=== PATIENT | male | born 1945 | race Two or more races ===

== ENCOUNTER 2020-08-26 16:24 | Inpatient (IN) | payer MEDICAID ==
[~2020-08-26] VITALS: Ht 165.1 cm; Wt 65.3 kg
--- NOTE | 2020-08-26 21:26 | NUR ---
Admitted a 75 yr old Male who was transferred from [facility] ER for continuity of care with the dx of sepsis d/t UTI.Per report patient had AMS became agitated and combative in the Er and was given Lorazepam ,IV ATV Rocephin for uti and Tylenol for fever.Upon assessment Patient is calm , confused and able to follow simple commands.IV on LT AC 20 patent and intact.Noted with skin discoloration on LT upper arm,LT dahl and sacral area. No skin breakdown. made aware of pt's admission.With new order noted and carried out.Safety measures in place .Bed in locked and lowest position.Will continue to monitor.
[2020-08-26] MEDS ORDERED: IV 1/2NS 1000 ML 1,000 ML IV PRN (21:45)
[2020-08-26] MEDS ORDERED: ONDANSETRON 4 MG/2 ML VIAL IV PRN (21:45)
[2020-08-26] MEDS ORDERED: MORPHINE SULFATE 2 MG/1 ML DISP.SYRIN IV PRN (21:45)
[2020-08-26] MEDS ORDERED: ENOXAPARIN SODIUM 40 MG/0.4 ML DISP.SYRIN SQ SCH (21:45)
[2020-08-26] MEDS ORDERED: CEFTRIAXONE 1 G VIAL ONE (22:23)
[2020-08-27 00:01] VITALS: BP 131/63
[2020-08-27 04:13] LABS: *BILIRUBIN,URIN NEGATIVE (NEGATIVE); *BLOOD, URINE 2+ (NEGATIVE); *CLARITY,URINE CLOUDY (CLEAR); *COLOR,URINE YELLOW (YELLOW); *KETONES,URINE NEGATIVE (NEGATIVE); *UROBILINOGEN,URINE 0.2 E.U./dl (NORMAL); LEUKOCYTE ESTERASE ,URINE TRACE (NEGATIVE); NITRITE, URINE NEGATIVE (NEGATIVE); UGLUCOSE NEGATIVE (NEGATIVE)
[2020-08-27 05:17] VITALS: BP 126/57
[2020-08-27] MEDS: PANTOPRAZOLE SODIUM 40 MG TABLET.DR PO SCH (06:01)
[2020-08-27 06:20] LABS: BASOPHILS # (AUTO) 0.1 K/uL (0.0-8.0); BASOPHILS % (AUTO) 0.8 % (0.0-2.0); EOSINOPHILS # (AUTO) 0.1 K/uL (0.0-0.7); EOSINOPHILS % (AUTO) 0.7 % (0.0-7.0); HEMATOCRIT 33.8 % (36.7-47.1); HEMOGLOBIN 11.3 g/dL (12.5-16.3); LYMPHOCYTES # (AUTO) 1.4 K/uL (20.0-40.0); LYMPHOCYTES % (AUTO) 16.6 % (20.5-51.5); MEAN CORPUSCULAR HEMOGLOBIN 33.5 uug (23.8-33.4); MEAN CORPUSCULAR HGB CONC 34 g/dL (32.5-36.3); MEAN CORPUSCULAR VOLUME 100.1 fL (73.0-96.2); MONOCYTES # (AUTO) 0.6 K/uL (2.0-10.0); MONOCYTES % (AUTO) 7.8 % (0.0-11.0); NEUTROPHILS # (AUTO) 6.1 K/uL (1.8-8.9); NEUTROPHILS % (AUTO) 74.1 % (38.5-71.5); PLATELET COUNT (AUTO) 206 K/uL (152-348); RED BLOOD CELL COUNT(AUTO) 3.37 MIL/uL (4.06-5.63); WHITE BLOOD COUNT (AUTO) 8.3 K/uL (3.6-10.2)
[2020-08-27 06:30] LABS: IRON, SERUM 88 ug/dL (50-175)
--- NOTE | 2020-08-27 06:35 | NUR ---
Patient awake ALOx1 .Kyrgyz speaking.Denies pain.No acute distress noted.Slept well through out the night.No episodes of combative or agitation .Continue safety measures.Will endorse to oncoming shift.
[2020-08-27 06:36] LABS: ALANINE AMINOTRANSFERASE 15 U/L (16-63); ALKALINE PHOSPHATASE 76 U/L (50-136); ASPARTATE AMINOTRANSFERASE 39 U/L (15-37); BILIRUBIN,TOTAL 0.5 mg/dL (0.2-1.0); CARBON DIOXIDE 22 mmol/L (21-32); CHLORIDE 107 mmol/L (98-107); CHOLESTEROL 144 mg/dL (<200); CREATININE 2.6 mg/dL (0.6-1.3); GLUCOSE 53 mg/dL (74-106); HDL CHOLESTEROL 49 mg/dL (40-60); POTASSIUM 3.9 mmol/L (3.5-5.1); TOTAL PROTEIN, SERUM 5.5 g/dL (6.4-8.2); TRIGLYCERIDES 79 MG/DL (30-150); UREA NITROGEN, BLOOD 28 mg/dL (7-18)
[2020-08-27 06:39] LABS: THYROID STIMULATING HORMONE 0.918 mIU/mL (0.358-3.740)
[2020-08-27] MEDS: METOPROLOL TARTRATE 25 MG TABLET PO SCH ×2 (09:10→19:55)
[2020-08-27] MEDS: LORAZEPAM 2 MG/1 ML VIAL IV PRN ×2 (10:28→16:46)
[2020-08-27] MEDS: ZIPRASIDONE MESYLATE 20 MG VIAL IM PRN ×2 (10:40→20:04)
[2020-08-27 12:05] VITALS: BP 157/63
--- NOTE | 2020-08-27 13:01 | NUR ---
WOUND CARE CONSULT: PER RN, PT AGRESSIVE AND AGITATED. RECOMMENDATIONS MADE BASED ON PHOTOS. DISCUSSED WITH NURSING STAFF. MD IN AGREEMENT WITH PLAN OF CARE.
[2020-08-27 13:19] LABS: BACTERIA,URINE FEW /HPF (NONE SEEN); SQUAMOUS EPITHELIAL CELL,UR FEW /HPF (NONE SEEN)
[2020-08-27 15:42] VITALS: BP 145/62
[2020-08-27] MEDS: QUETIAPINE FUMARATE 25 MG TABLET PO SCH (17:00)
--- NOTE | 2020-08-27 17:08 | NUR ---
AAOx1. Delusional and combative/aggressive at times. Geodon PRN x1 and ativan PRN x1 administered w/ good relief. Pt appear comfortable and asleep in bed at this time. VSS. SR on monitor. Continent x2. Ambulatory w/ 1 person assist. RA, no SOB. SKin care provided. Plan: AM labs, psych consult, IVF
[2020-08-27] MEDS ORDERED: THIAMINE HCL 200 MG/2 ML VIAL IV ONE (17:30)
[2020-08-27] MEDS: IV NS 1000 ML 1,000 ML IV PRN (18:06)
[2020-08-27] MEDS: ENOXAPARIN SODIUM 30 MG/0.3 ML DISP.SYRIN SQ SCH (19:59)
[2020-08-27] MEDS: DOCUSATE SODIUM 100 MG CAPSULE PO SCH ×2 (20:01→20:24)
[2020-08-27 20:26] VITALS: BP 168/90
[2020-08-27] MEDS: CEFTRIAXONE 1 G in IV DEXTROSE 5% 50 ML IV SCH (22:34)
[2020-08-28] MEDS: LORAZEPAM 2 MG/1 ML VIAL IV PRN ×2 (00:08→08:47)
--- NOTE | 2020-08-28 00:18 | NUR ---
Patient agitated and combative. Trying to get up out of bed. Danger to self and staff. PRN Ativan administered. Will monitor and assess.
[2020-08-28] MEDS: ZIPRASIDONE MESYLATE 20 MG VIAL IM PRN (04:21)
--- NOTE | 2020-08-28 04:21 | NUR ---
Patient agitated, trying to get out of bed, attempting to pull out IV. Calming measures attempted to no avail. PRN Geodon given. Will monitor and assess.
--- NOTE | 2020-08-28 06:57 | NUR ---
Patient handed off to AM nurse. Stable condition. All vitals WNLs. Safety measures in place. Will endorse to AM nurse.
[2020-08-28] MEDS: PANTOPRAZOLE SODIUM 40 MG TABLET.DR PO SCH (07:00)
[2020-08-28 07:31] LABS: BASOPHILS # (AUTO) 0.1 K/uL (0.0-8.0); BASOPHILS % (AUTO) 0.8 % (0.0-2.0); EOSINOPHILS # (AUTO) 0.1 K/uL (0.0-0.7); EOSINOPHILS % (AUTO) 1.4 % (0.0-7.0); HEMATOCRIT 38.5 % (36.7-47.1); HEMOGLOBIN 12.7 g/dL (12.5-16.3); LYMPHOCYTES # (AUTO) 1.7 K/uL (20.0-40.0); MEAN CORPUSCULAR HEMOGLOBIN 33.5 uug (23.8-33.4); MEAN CORPUSCULAR HGB CONC 33 g/dL (32.5-36.3); MEAN CORPUSCULAR VOLUME 101.5 fL (73.0-96.2); MONOCYTES # (AUTO) 0.6 K/uL (2.0-10.0); MONOCYTES % (AUTO) 7.8 % (0.0-11.0); NEUTROPHILS # (AUTO) 4.9 K/uL (1.8-8.9); PLATELET COUNT (AUTO) 197 K/uL (152-348); WHITE BLOOD COUNT (AUTO) 7.3 K/uL (3.6-10.2)
[2020-08-28 08:05] LABS: ALANINE AMINOTRANSFERASE 17 U/L (16-63); ALKALINE PHOSPHATASE 81 U/L (50-136); ASPARTATE AMINOTRANSFERASE 39 U/L (15-37); BILIRUBIN,TOTAL 0.4 mg/dL (0.2-1.0); CARBON DIOXIDE 20 mmol/L (21-32); CHLORIDE 107 mmol/L (98-107); CREATININE 2.6 mg/dL (0.6-1.3); GLUCOSE 57 mg/dL (74-106); MAGNESIUM 2.3 mg/dL (1.8-2.4); PHOSPHOROUS 3.1 mg/dL (2.5-4.9); POTASSIUM 3.9 mmol/L (3.5-5.1); TOTAL PROTEIN, SERUM 6.4 g/dL (6.4-8.2); UREA NITROGEN, BLOOD 26 mg/dL (7-18)
[2020-08-28] MEDS: QUETIAPINE FUMARATE 25 MG TABLET PO SCH ×2 (08:09→16:13)
[2020-08-28] MEDS: METOPROLOL TARTRATE 25 MG TABLET PO SCH ×2 (08:20→21:00)
--- NOTE | 2020-08-28 09:03 | NUR ---
PATIENT AWAKE BUT CONFUSED, COMBATIVE, TRIES TO AMBULATE BUT UNSTEADY AT THIS TIME, REFUSED ASSISTANCE, GIVEN ATIVAN 0.5MG IV FOR AGITATION ANXIETY, CONT TO MONITOR.
--- NOTE | 2020-08-28 10:43 | NUR ---
PATIENT AWAKE CONFUSED, STILL AGITATED, PULLING OUT TELE BOX, STOP IV AT THIS TIME, PULLING OUT IV POLL, CONT TO MONITOR, GAVE BREAKFAST AND FLUIDS, KEPT CLEAN AND DRY, CONT TO MONITOR. PATIENT DRINK ADEQUATE JUICE AND WATER, AND ATE BREAKFAST CONT TO MONITOR.
--- NOTE | 2020-08-28 11:19 | NUR ---
The patient is confused and combative, RN Will will call the tech when he is ready to be scanned.
--- NOTE | 2020-08-28 15:07 | NUR ---
PATIENT BP ELEVATED NOTIFY EDEL WRIGHT NP.
[2020-08-28] MEDS: ACETAMINOPHEN 325 MG TABLET PO PRN (15:11)
[2020-08-28] MEDS: CLONIDINE HCL 0.1 MG TABLET PO PRN (15:13)
[2020-08-28] MEDS: HALOPERIDOL LACTATE 5 MG/1 ML VIAL IM PRN (15:30)
--- NOTE | 2020-08-28 15:35 | NUR ---
PATIENT AGITATED, HOSTILE AND COMBATIVE, GIVEN HALDOL IM ORDERED, CONT TO MONITOR.
[2020-08-28] MEDS: CHLORDIAZEPOXIDE HCL 25 MG CAPSULE PO SCH ×2 (17:46→18:05)
--- NOTE | 2020-08-28 17:46 | NUR ---
LIBRIUM MEDICATION ENTER MANUALLY, BAR SCAN UNSCANNABLE.
--- NOTE | 2020-08-28 18:32 | NUR ---
PATIENT AGITATED, PULLING OUT TELE WIRES AND PATIENT TOO AGITATED WITH IV RUNNING NOTIFY KYLE HOLLINGSWORTH. KYLE D/C THE TELE, AND IV ON HOLD TILL PATIENT CALM.
[2020-08-28] MEDS: DOCUSATE SODIUM 100 MG CAPSULE PO SCH (21:00)
[2020-08-28] MEDS: CEFTRIAXONE 1 G in IV DEXTROSE 5% 50 ML IV SCH (22:22)
[2020-08-28] MEDS: ENOXAPARIN SODIUM 30 MG/0.3 ML DISP.SYRIN SQ SCH (22:31)
[2020-08-29] VITALS (8 sets, daily range): BP systolic 107–208; BP diastolic 47–82
[2020-08-29] MEDS: CLONIDINE HCL 0.1 MG TABLET PO PRN ×2 (01:26→05:24)
[2020-08-29] MEDS: IV NS 1000 ML 1,000 ML IV PRN ×2 (03:06→18:12)
[2020-08-29] MEDS: PANTOPRAZOLE SODIUM 40 MG TABLET.DR PO SCH (06:43)
--- NOTE | 2020-08-29 07:09 | NUR ---
Handoff with day team nurse [employer]. Conrado Tang RN
[2020-08-29 07:34] LABS: CARBON DIOXIDE 23 mmol/L (21-32); CHLORIDE 109 mmol/L (98-107); CREATININE 2.5 mg/dL (0.6-1.3); GLUCOSE 107 mg/dL (74-106); POTASSIUM 3.9 mmol/L (3.5-5.1); UREA NITROGEN, BLOOD 25 mg/dL (7-18)
[2020-08-29] MEDS: CHLORDIAZEPOXIDE HCL 25 MG CAPSULE PO SCH ×2 (07:50→16:00)
[2020-08-29] MEDS: METOPROLOL TARTRATE 25 MG TABLET PO SCH (07:51)
[2020-08-29 07:59] LABS: BASOPHILS % (AUTO) 0.3 % (0.0-2.0); EOSINOPHILS # (AUTO) 0.1 K/uL (0.0-0.7); EOSINOPHILS % (AUTO) 1.9 % (0.0-7.0); HEMATOCRIT 35.8 % (36.7-47.1); LYMPHOCYTES # (AUTO) 1.4 K/uL (20.0-40.0); LYMPHOCYTES % (AUTO) 19.4 % (20.5-51.5); MEAN CORPUSCULAR HEMOGLOBIN 33.9 uug (23.8-33.4); MEAN CORPUSCULAR HGB CONC 34 g/dL (32.5-36.3); MEAN CORPUSCULAR VOLUME 100.9 fL (73.0-96.2); MONOCYTES # (AUTO) 0.6 K/uL (2.0-10.0); MONOCYTES % (AUTO) 8.6 % (0.0-11.0); NEUTROPHILS # (AUTO) 5.1 K/uL (1.8-8.9); NEUTROPHILS % (AUTO) 69.8 % (38.5-71.5); PLATELET COUNT (AUTO) 206 K/uL (152-348); RED BLOOD CELL COUNT(AUTO) 3.54 MIL/uL (4.06-5.63); WHITE BLOOD COUNT (AUTO) 7.3 K/uL (3.6-10.2)
[2020-08-29] MEDS: LORAZEPAM 2 MG/1 ML VIAL IV PRN (09:05)
[2020-08-29] MEDS: CLONIDINE HCL 0.2 MG TABLET PO PRN (15:34)
[2020-08-29] MEDS: DOCUSATE SODIUM 100 MG CAPSULE PO SCH (20:07)
[2020-08-29] MEDS: ENOXAPARIN SODIUM 30 MG/0.3 ML DISP.SYRIN SQ SCH (20:09)
[2020-08-29] MEDS: METOPROLOL TARTRATE 50 MG TABLET PO SCH (21:00)
[2020-08-29] MEDS: CEFTRIAXONE 1 G in IV DEXTROSE 5% 50 ML IV SCH (22:17)
[2020-08-29] MEDS: HALOPERIDOL 0.5 MG TABLET PO SCH (23:45)
[2020-08-30 04:54] VITALS: BP 159/77
[2020-08-30] MEDS: PANTOPRAZOLE SODIUM 40 MG TABLET.DR PO SCH (06:14)
[2020-08-30] MEDS: HALOPERIDOL 0.5 MG TABLET PO SCH ×3 (08:43→16:48)
[2020-08-30] MEDS: METOPROLOL TARTRATE 50 MG TABLET PO SCH ×2 (08:43→20:32)
[2020-08-30] MEDS: CHLORDIAZEPOXIDE HCL 25 MG CAPSULE PO SCH ×2 (08:43→16:47)
--- NOTE | 2020-08-30 09:00 | NUR ---
ATTEMPTING TO GET OUT OF BED ASSISTED ONTO THE [facility]ARD CHAIR AND CONTINUE ON IVF ORDERED
[2020-08-30 12:00] VITALS: BP 151/60
[2020-08-30] MEDS: IV NS 1000 ML 1,000 ML IV PRN (12:02)
[2020-08-30 16:00] VITALS: BP 147/63
--- NOTE | 2020-08-30 18:00 | NUR ---
BACK INTO BED COMPLIANT WITH MEDICATIONS AND CARE NO C/O WAS SEEN BY THE PHYSICAL THERAPY WITH GOOD ENDURANCE MORE ALERT AND COOPERATIVE MADE COMFORTABLE WILL CONTINUE TO OBSERVE.
--- NOTE | 2020-08-30 19:30 | NUR ---
Received pt laying down in bed awake. Denies any pain or SOB. IV was infiltrated so new one was started. Pt is getting ordered IV fluids. Will continue to monitor.
[2020-08-30] MEDS: DOCUSATE SODIUM 100 MG CAPSULE PO SCH (20:32)
[2020-08-30] MEDS: ENOXAPARIN SODIUM 30 MG/0.3 ML DISP.SYRIN SQ SCH (20:33)
[2020-08-30 20:51] VITALS: BP 153/73
[2020-08-30] MEDS: CEFTRIAXONE 1 G in IV DEXTROSE 5% 50 ML IV SCH (22:23)
[2020-08-31 04:50] VITALS: BP 166/63
[2020-08-31] MEDS: IV NS 1000 ML 1,000 ML IV PRN (06:46)
--- NOTE | 2020-08-31 06:48 | NUR ---
Pt slept throughout the night. Denies any pain or SOB at this time. IV fluids running. Safety and comfort provided. Will endorse to day shift.
[2020-08-31] MEDS: PANTOPRAZOLE SODIUM 40 MG TABLET.DR PO SCH (07:04)
[2020-08-31] MEDS: CLONIDINE HCL 0.2 MG TABLET PO PRN (07:04)
--- NOTE | 2020-08-31 08:00 | NUR ---
Pt confused. Pt ambulatory with good balance. PT independently feed himself. Pt has very good appetite. Pt Denies any c/o pain. Call light is within reach.
[2020-08-31 08:30] VITALS: BP 173/70
[2020-08-31] MEDS: HALOPERIDOL 0.5 MG TABLET PO SCH ×3 (09:00→17:21)
[2020-08-31] MEDS: CHLORDIAZEPOXIDE HCL 25 MG CAPSULE PO SCH ×2 (09:24→17:21)
[2020-08-31] MEDS: METOPROLOL TARTRATE 50 MG TABLET PO SCH ×2 (09:27→21:00)
[2020-08-31] MEDS: DOCUSATE SODIUM 100 MG CAPSULE PO SCH (09:30)
--- NOTE | 2020-08-31 10:00 | NUR ---
Pt combative hitting nurses and attempting to awol. Deescalation technique decrease stimuli, turned on tv for distraction.
--- NOTE | 2020-08-31 11:00 | NUR ---
Deescalation effective. PT more calm and cooperative.
[2020-08-31 15:28] LABS: BASOPHILS # (AUTO) 0.1 K/uL (0.0-8.0); EOSINOPHILS # (AUTO) 0.2 K/uL (0.0-0.7); HEMOGLOBIN 11.2 g/dL (12.5-16.3); MONOCYTES # (AUTO) 0.7 K/uL (2.0-10.0); MONOCYTES % (AUTO) 7.8 % (0.0-11.0)
[2020-08-31 15:33] LABS: BASOPHILS % (AUTO) 0.7 % (0.0-2.0); EOSINOPHILS % (AUTO) 2.4 % (0.0-7.0); HEMATOCRIT 34.5 % (36.7-47.1); LYMPHOCYTES # (AUTO) 1.3 K/uL (20.0-40.0); LYMPHOCYTES % (AUTO) 15.6 % (20.5-51.5); MEAN CORPUSCULAR HEMOGLOBIN 32.7 uug (23.8-33.4); MEAN CORPUSCULAR HGB CONC 33 g/dL (32.5-36.3); MEAN CORPUSCULAR VOLUME 100.8 fL (73.0-96.2); NEUTROPHILS # (AUTO) 6.2 K/uL (1.8-8.9); NEUTROPHILS % (AUTO) 73.5 % (38.5-71.5); PLATELET COUNT (AUTO) 197 K/uL (152-348); RED BLOOD CELL COUNT(AUTO) 3.42 MIL/uL (4.06-5.63); WHITE BLOOD COUNT (AUTO) 8.4 K/uL (3.6-10.2)
[2020-08-31 15:40] LABS: ALANINE AMINOTRANSFERASE 17 U/L (16-63); ALKALINE PHOSPHATASE 69 U/L (50-136); ASPARTATE AMINOTRANSFERASE 30 U/L (15-37); BILIRUBIN,TOTAL 0.2 mg/dL (0.2-1.0); CARBON DIOXIDE 20 mmol/L (21-32); CHLORIDE 109 mmol/L (98-107); CREATININE 2.2 mg/dL (0.6-1.3); GLUCOSE 93 mg/dL (74-106); MAGNESIUM 1.8 mg/dL (1.8-2.4); PHOSPHOROUS 3.2 mg/dL (2.5-4.9); POTASSIUM 4.6 mmol/L (3.5-5.1); TOTAL PROTEIN, SERUM 6.2 g/dL (6.4-8.2); UREA NITROGEN, BLOOD 23 mg/dL (7-18)
[2020-08-31 15:41] VITALS: BP 193/87
--- NOTE | 2020-08-31 18:00 | NUR ---
Pt has good appetite throughout shift. Pt is in no acute distress. Pt cooperative and taking his medications.
--- NOTE | 2020-08-31 19:00 | NUR ---
Received patient from AM nurse. Stable condition. Safety measures in place. Sitter at bedside. Will monitor, assess, continue plan of care.
[2020-08-31 20:10] VITALS: BP 168/74
[2020-08-31] MEDS: ENOXAPARIN SODIUM 30 MG/0.3 ML DISP.SYRIN SQ SCH (21:00)
[2020-08-31] MEDS: HALOPERIDOL LACTATE 5 MG/1 ML VIAL IM PRN (21:00)
[2020-08-31] MEDS: LORAZEPAM 2 MG/1 ML VIAL IV PRN (21:10)
--- NOTE | 2020-08-31 21:28 | NUR ---
Patient combative and aggressive earlier. Attempting to hit nurses and throw things.Code gabriella called. PRN medications given per MD order.
[2020-08-31] MEDS: CEFTRIAXONE 1 G in IV DEXTROSE 5% 50 ML IV SCH (22:56)
[2020-09-01] MEDS: LORAZEPAM 2 MG/1 ML VIAL IV PRN (03:57)
[2020-09-01 04:50] VITALS: BP 165/59
[2020-09-01] MEDS: PANTOPRAZOLE SODIUM 40 MG TABLET.DR PO SCH (06:00)
[2020-09-01] MEDS: CLONIDINE HCL 0.2 MG TABLET PO PRN (06:25)
--- NOTE | 2020-09-01 07:00 | NUR ---
Patient handed off to AM nurse. Stable condition. Will endorse all necessary information.
--- NOTE | 2020-09-01 07:20 | NUR ---
Received PT in bed, awake AO X 2. No signs of acute distress or no shortness of breath. PT seemed calm and follows commands when spoken to in Urdu. Safety measures provided, call light within reach, bed low and lock. Will continue to monitor.
[2020-09-01 08:09] LABS: BASOPHILS # (AUTO) 0.1 K/uL (0.0-8.0); BASOPHILS % (AUTO) 1.1 % (0.0-2.0); EOSINOPHILS # (AUTO) 0.1 K/uL (0.0-0.7); EOSINOPHILS % (AUTO) 1.1 % (0.0-7.0); HEMATOCRIT 44.3 % (36.7-47.1); HEMOGLOBIN 15.2 g/dL (12.5-16.3); LYMPHOCYTES % (AUTO) 10.1 % (20.5-51.5); MEAN CORPUSCULAR HEMOGLOBIN 30.9 uug (23.8-33.4); MEAN CORPUSCULAR HGB CONC 34 g/dL (32.5-36.3); MONOCYTES # (AUTO) 0.7 K/uL (2.0-10.0); MONOCYTES % (AUTO) 7.5 % (0.0-11.0); NEUTROPHILS # (AUTO) 7.7 K/uL (1.8-8.9); NEUTROPHILS % (AUTO) 80.2 % (38.5-71.5); PLATELET COUNT (AUTO) 439 K/uL (152-348); RED BLOOD CELL COUNT(AUTO) 4.93 MIL/uL (4.06-5.63); WHITE BLOOD COUNT (AUTO) 9.6 K/uL (3.6-10.2)
[2020-09-01 08:17] LABS: BILIRUBIN,TOTAL 0.9 mg/dL (0.2-1.0); CREATININE 1.1 mg/dL (0.6-1.3); MAGNESIUM 1.6 mg/dL (1.8-2.4); PHOSPHOROUS 2.1 mg/dL (2.5-4.9); POTASSIUM 3.1 mmol/L (3.5-5.1); TOTAL PROTEIN, SERUM 7.1 g/dL (6.4-8.2)
[2020-09-01] MEDS: ENSURE ENLIVE (VAN) 240 ML LIQUID PO SCH (08:54)
[2020-09-01] MEDS: METOPROLOL TARTRATE 50 MG TABLET PO SCH ×2 (08:54→21:45)
[2020-09-01] MEDS: CHLORDIAZEPOXIDE HCL 25 MG CAPSULE PO SCH ×2 (08:54→16:54)
[2020-09-01] MEDS: HALOPERIDOL 0.5 MG TABLET PO SCH ×3 (08:59→16:54)
[2020-09-01] MEDS ORDERED: MAGNESIUM SULFATE/D5W 100 ML IV SCH (09:15)
[2020-09-01] MEDS: IV D5W 1000ML 1,000 ML IV PRN (09:56)
[2020-09-01] MEDS ORDERED: POTASSIUM PHOSPHATE MM 7.5 MMOL in IV NORMAL SALINE 97.5 ML IV ONE (10:00)
[2020-09-01] MEDS: POTASSIUM CHLORIDE 50 ML IV SCH ×7 (10:15→20:35)
[2020-09-01 11:00] VITALS: BP 116/52
--- NOTE | 2020-09-01 12:03 | NUR ---
Welding Machine Feeder Consultation: This SW met with patient today. Reason for consultation: Homelessness. Patient is a 75 year old male, brought to [facility] on 08/26/20, as a transfer from [facility]. Patient is awake, sitting up in a chair. SW met with patient, accompanied by Nicaraguan speaking library science instructor, since patient is Nicaraguan speaking only. Patient was receptive to meeting with this SW. Patient is oriented x 1-2, however is a poor historian and unable to provide this SW with much personal/medical history. Patient states that he lives in a trailer, however was not able to identify how he tends to his ADL's, or how long he was been homeless. Patient stated that he has one daughter, and that she was in a taxi somewhere. When asked about discharge plans, patient was not able to identify a safe and clear discharge plan. This SW was unable to further explore patient's needs nor offer the homeless resource packet, as patient is unable to engage in a conversation with this SW and is not able to identify his needs. SW assessed patient's thought content, and patient admitted to auditory hallucinations, stating that "I hear noises in my ear". No delusional thoughts observed. Per patient's medical records, patient was seen by Dr. Bolden for a psychiatric consult, and was started on Haldol 0.5 mg, TID. At this time, SW to work with case management to ensure a safe and proper discharge. SW will continue to remain available to patient, as needed.
[2020-09-01] MEDS ORDERED: NEUTRA PHOS PACKET PO ONE (13:15)
[2020-09-01 15:12] VITALS: BP 129/56
[2020-09-01] MEDS: ACETAMINOPHEN 325 MG TABLET PO PRN (16:57)
--- NOTE | 2020-09-01 18:50 | NUR ---
PT in bed, awake, calm and cooperative. No signs of acute distress or no shortness of breath. PT stated he was ok and thankful. Safety measures provided, call light within reach, bed low and lock. Will endorse to maintenance supervisor 2nd shift nurse.
[2020-09-01] MEDS: DOCUSATE SODIUM 100 MG CAPSULE PO SCH (21:45)
[2020-09-01] MEDS: ENOXAPARIN SODIUM 30 MG/0.3 ML DISP.SYRIN SQ SCH (21:46)
[2020-09-01] MEDS: CEFTRIAXONE 1 G in IV DEXTROSE 5% 50 ML IV SCH (23:26)
--- NOTE | 2020-09-02 05:34 | NUR ---
iv cannula noted to be infiltrated and swollen. discontinued and dressing applied.
[2020-09-02 06:19] LABS: BASOPHILS # (AUTO) 0.1 K/uL (0.0-8.0); BASOPHILS % (AUTO) 0.9 % (0.0-2.0); EOSINOPHILS # (AUTO) 0.2 K/uL (0.0-0.7); HEMATOCRIT 33.5 % (36.7-47.1); HEMOGLOBIN 11.3 g/dL (12.5-16.3); LYMPHOCYTES # (AUTO) 1.6 K/uL (20.0-40.0); LYMPHOCYTES % (AUTO) 16.6 % (20.5-51.5); MEAN CORPUSCULAR HEMOGLOBIN 33.7 uug (23.8-33.4); MEAN CORPUSCULAR HGB CONC 34 g/dL (32.5-36.3); MEAN CORPUSCULAR VOLUME 99.8 fL (73.0-96.2); MONOCYTES # (AUTO) 0.9 K/uL (2.0-10.0); MONOCYTES % (AUTO) 9.4 % (0.0-11.0); NEUTROPHILS # (AUTO) 6.8 K/uL (1.8-8.9); NEUTROPHILS % (AUTO) 71.1 % (38.5-71.5); PLATELET COUNT (AUTO) 221 K/uL (152-348); RED BLOOD CELL COUNT(AUTO) 3.36 MIL/uL (4.06-5.63); WHITE BLOOD COUNT (AUTO) 9.5 K/uL (3.6-10.2)
[2020-09-02 06:30] LABS: CARBON DIOXIDE 24 mmol/L (21-32); CHLORIDE 106 mmol/L (98-107); CREATININE 2.7 mg/dL (0.6-1.3); GLUCOSE 100 mg/dL (74-106); MAGNESIUM 2.1 mg/dL (1.8-2.4); PHOSPHOROUS 3.7 mg/dL (2.5-4.9); POTASSIUM 4.8 mmol/L (3.5-5.1); UREA NITROGEN, BLOOD 31 mg/dL (7-18)
[2020-09-02] MEDS: PANTOPRAZOLE SODIUM 40 MG TABLET.DR PO SCH ×2 (07:19→07:24)
[2020-09-02] MEDS: CHLORDIAZEPOXIDE HCL 25 MG CAPSULE PO SCH (08:41)
[2020-09-02] MEDS: HALOPERIDOL 0.5 MG TABLET PO SCH ×2 (08:41→12:00)
[2020-09-02] MEDS: METOPROLOL TARTRATE 50 MG TABLET PO SCH (08:41)
[2020-09-02] MEDS: ENSURE ENLIVE (VAN) 240 ML LIQUID PO SCH (08:41)
--- NOTE | 2020-09-02 09:00 | NUR ---
REFUSING TO BE BLADDER SCANNED. REFUSING TO SIT IN CHAIR
[2020-09-02 10:42] VITALS: BP 160/59
--- NOTE | 2020-09-02 11:00 | NUR ---
REFUSING ALL TREATMENTS. REFUSING BLADDER SCAN. BECOMING VERY COMBATIVE.
[2020-09-02] MEDS: IV D5W 1000ML 1,000 ML IV PRN (11:55)
[2020-09-02] MEDS: LORAZEPAM 2 MG/1 ML VIAL IV PRN (11:56)
[2020-09-02] MEDS: ZIPRASIDONE MESYLATE 20 MG VIAL IM PRN (11:59)
--- NOTE | 2020-09-02 12:00 | NUR ---
MED WITH IV ATIVAN & GEODON IM WITH GOOD EFFECT AFTER 40 MINS. VOIDING QS.
[2020-09-02] MEDS ORDERED: CEPH-570 PO (13:11)
[2020-09-02] MEDS ORDERED: METO50TA16 PO (13:11)
[2020-09-02] MEDS ORDERED: HALO0.5T6 PO (13:11)
[2020-09-02] MEDS ORDERED: AMLO5TAB4 PO (13:19)
[2020-09-02 15:54] VITALS: BP 213/80
[2020-09-02 15:58] VITALS: BP 213/80
[2020-09-02] MEDS: CLONIDINE HCL 0.2 MG TABLET PO PRN (15:58)
--- NOTE | 2020-09-02 16:00 | NUR ---
PREPARED FOR DISCHARGE. CALM AND COOPERATIVE AT THIS TIME.
[2020-09-02 16:07] LABS: *BILIRUBIN,URIN NEGATIVE (NEGATIVE); *CLARITY,URINE CLEAR (CLEAR); *COLOR,URINE LIGHT YELLOW (YELLOW); *KETONES,URINE NEGATIVE (NEGATIVE); *UROBILINOGEN,URINE 0.2 E.U./dl (NORMAL); LEUKOCYTE ESTERASE ,URINE 1+ (NEGATIVE); NITRITE, URINE NEGATIVE (NEGATIVE); PH,URINE 5.5 (5.0-8.0); UGLUCOSE NEGATIVE (NEGATIVE)
[2020-09-02 16:08] LABS: *BLOOD, URINE TRACE (NEGATIVE)
[2020-09-02 16:21] LABS: *CREATININE,URINE 19.9 mg/dL (30-125); *URINE TOTAL PROTEIN RANDOM 13.9 mg/dL (<150/24HR)
--- NOTE | 2020-09-02 16:50 | NUR ---
DISCHARGED VIA [facility] TO AMBULANCE ATTENDANTS. NO C/O DISCOMFORT.
[2020-09-02 18:41] LABS: BACTERIA,URINE RARE /HPF (NONE SEEN)
[2020-09-02 18:42] LABS: SQUAMOUS EPITHELIAL CELL,UR FEW /HPF (NONE SEEN)
== END 2020-09-02 16:50 | DRG 720 ==
LOC: TELE3 20:43 → MEDSURG3 08-28 19:23
PROVIDERS: ADMIT Nurse Practitioner Acute Care; ATTEND Nurse Practitioner Acute Care
DX: A41.9 Sepsis, unspecified organism (principal); N39.0 Urinary tract infection, site not specified; N17.0 Acute kidney failure with tubular necrosis; G93.41 Metabolic encephalopathy; E43 Unspecified severe protein-calorie malnutrition; F29 Unspecified psychosis not due to a substance or known physiological condition; E87.6 Hypokalemia; E83.42 Hypomagnesemia; N18.9 Chronic kidney disease, unspecified; I12.9 Hypertensive chronic kidney disease with stage 1 through stage 4 chronic kidney disease, or unspecified chronic kidney disease; Z59.0 Homelessness; E88.09 Other disorders of plasma-protein metabolism, not elsewhere classified; Z68.24 Body mass index [BMI] 24.0-24.9, adult
CPT/HCPCS: 36415; 70030-TC; 71045; 76770; 82747; 83550; 83605; 83735; 83970; 84100; 84156; 84300; 84443; 85014; 85025; 86592; 87040; 87086; 93005; A4663; C1758; G0378; J0696; J1630; J1650; J2060; J2270; J3411; J3475; J3480; J3486; J3490; J7030; J7060